=== PATIENT | male | born 1975 | race Caucasian/White ===

== ENCOUNTER 2018-02-19 12:20 | Emergency (ER) | payer SELFPAY ==
[2018-02-19 12:30] VITALS: BP 125/86
--- NOTE | 2018-02-19 13:46 | US ---
EXAMINATION: Right inguinal ultrasound HISTORY: Tenderness COMPARISON: None TECHNIQUE: Grayscale, real-time and color Doppler imaging obtained. FINDINGS: There is no evidence of an inguinal hernia with or without soluble. Within the region of concern there are a few mildly prominent however nonpathologically enlarged inguinal chain lymph nodes noted. These measure up to 2.4 x 0.5 cm. Otherwise no suspicious mass or findings demonstrated. No abnormal color flow. IMPRESSION: 1. Several mildly prominent, however nonpathologically enlarged right inguinal chain lymph nodes noted. Likely reactive.
--- NOTE | 2018-02-19 13:59 | EDM.PDOC ---
ED HPI GENERAL MEDICAL PROBLEM - General Chief Complaint: Lower Extremity Injury/Pain Stated Complaint: SWOLLEN BETWEEN PTS LEGS Time Seen by Provider: 02/19/18 12:27 Source of Information: Reports: Patient History Limitations: Reports: No Limitations - History of Present Illness INITIAL COMMENTS - FREE TEXT/NARRATIVE: History of present illness: []Patient noted a mass under the skin in his right groin today he states is painful. Not notice it in the past he states he has not had any fevers, denies any genital lesions or pain with urination. Review of systems: As per history of present illness and below otherwise all systems reviewed and negative. Past medical history: As per history of present illness and as reviewed below otherwise noncontributory. Surgical history: As per history of present illness and as reviewed below otherwise noncontributory. Social history: No reported history of drug or alcohol abuse. Family history: As per history of present illness and as reviewed below otherwise noncontributory. Physical exam: General: Well developed, well nourished in NAD HEENT: Atraumatic, normocephalic, pupils reactive, negative for conjunctival pallor or scleral icterus, mucous membranes moist, throat clear, neck supple, nontender, trachea midline. Lungs: Clear to auscultation, breath sounds equal bilaterally, chest nontender. Heart: S1S2, regular, negative for clicks, rubs, or JVD. Abdomen: Soft, nondistended, nontender. Negative for masses or hepatosplenomegaly. Negative for costovertebral tenderness. Pelvis: Stable nontender. Genitourinary: Deferred. Rectal: Deferred. Extremities: Right inguinal canal has tender firm mass there is no erythema on the skin and unable to increase the size of this mass with Valsalva. Atraumatic , negative for cords or calf pain. Neurovascular unremarkable. Neuro: Awake, alert, oriented. Cranial nerves II through XII unremarkable. Cerebellum unremarkable. Motor and sensory unremarkable throughout. Exam nonfocal. Skin:warm and dry Diagnostics: Ultrasound of extremity shows lymph node in the inguinal canal there is no hernia present Therapeutics: None ED Course: Unremarkable Impression: Adenopathy Prescriptions: None Plan: Warm packs, ibuprofen for pain, follow-up with primary care in 1-2 weeks, return to ER if symptoms worsen or change. Definitive disposition and diagnosis as appropriate pending reevaluation and review of above. Right Groin Pain Score (Numeric/FACES): 5 - Related Data Allergies Allergy/AdvReac Type Severity Reaction Status Date / Time No Known Allergies Allergy Verified 02/19/18 12:30 Home Meds: Home Meds . [No Known Home Meds] 02/19/18 [History] Past Medical History HEENT History: Reports: None Cardiovascular History: Other Cardiovascular History: states has had high BP in the past Respiratory History: Reports: None Gastrointestinal History: Reports: GERD Genitourinary History: Reports: None Musculoskeletal History: Reports: Fracture Neurological History: Reports: None Psychiatric History: Reports: None Endocrine/Metabolic History: Reports: None Hematologic History: Reports: None Immunologic History: Reports: None Oncologic (Cancer) History: Reports: None Dermatologic History: Reports: None - Infectious Disease History Infectious Disease History: Reports: Chicken Pox - Past Surgical History Head Surgeries/Procedures: Reports: None Musculoskeletal Surgical History: Reports: Other (See Below) Other Musculoskeletal Surgeries/Procedures:: L wrist fused Social & Family History - Family History Family Medical History: Noncontributory - Tobacco Use Smoking Status *Q: Current Every Day Smoker Years of Tobacco use: 20 Packs/Tins Daily: 0.5 - Caffeine Use Caffeine Use: Reports: Coffee - Recreational Drug Use Recreational Drug Use: No Review of Systems - Review of Systems Review Of Systems: ROS reveals no pertinent complaints other than HPI. ED EXAM, GENERAL - Physical Exam Exam: See Below (See history of present illness) Course - Vital Signs Last Recorded V/S: Last Vital Signs Temp 98.9 F 02/19/18 12:27 Pulse 77 02/19/18 12:27 Resp 18 02/19/18 12:27 BP 125/86 02/19/18 12:27 Pulse Ox 97 02/19/18 12:27 Departure - Departure Time of Disposition: 13:58 Disposition: Home, Self-Care 01 Condition: Good Clinical Impression: Inguinal lymphadenopathy - Discharge Information *PRESCRIPTION DRUG MONITORING PROGRAM REVIEWED*: No *COPY OF PRESCRIPTION DRUG MONITORING REPORT IN PATIENT LUDIVINA: No Referrals: PCP,None [Primary Care Provider] - Additional Instructions: The following information is given to patients seen in the emergency department who are being discharged to home. This information is to outline your options for follow-up care. We provide all patients seen in our emergency department with a follow-up referral. The need for follow-up, as well as the timing and circumstances, are variable depending upon the specifics of your emergency department visit. If you don't have a primary care physician on staff, we will provide you with a referral. We always advise you to contact your personal physician following an emergency department visit to inform them of the circumstance of the visit and for follow-up with them and/or the need for any referrals to a consulting specialist. The emergency department will also refer you to a specialist when appropriate. This referral assures that you have the opportunity for follow-up care with a specialist. All of these measure are taken in an effort to provide you with optimal care, which includes your follow-up. Under all circumstances we always encourage you to contact your private physician who remains a resource for coordinating your care. When calling for follow-up care, please make the office aware that this follow-up is from your recent emergency room visit. If for any reason you are refused follow-up, please contact the [facility] Emergency Department at and asked to speak to the emergency department charge nurse. Warm packs, ibuprofen for pain follow-up with primary care in 1-2 weeks return if symptoms worsen or change. [facility] [place] [id number]
== END 2018-02-19 14:21 | disposition home or self-care (01) ==
LOC: MW.ED 12:20
DX: R59.0 Localized enlarged lymph nodes (principal)
CPT/HCPCS: 76881-26-RT; 76881-RT; 99282; 99283-25